=== PATIENT | female | born 1955 | race Caucasian/White ===

== ENCOUNTER 2018-02-25 13:56 | Observation (INO) | payer BC, OTHER ==
[2018-02-25 14:39] LABS: #Basophils 0.1 thou/uL (0.0-0.2); #Eosinphils 0.1 thou/uL (0.0-0.7); #Lymphocytes 1.8 thou/uL (1.20-3.40); #Monocytes 0.5 thou/uL (0.11-0.59); %Basophils 0.9 % (0.0-1.0); %Eosinophils 1.7 % (0.0-10.0); %Lymphocytes 27.1 % (21.0-51.0); %Neutrophils 62.2 % (42.0-75.0); Mean Corpuscular HGB CONC 32.3 g/dL (32.0-36.0); Mean Corpuscular Hemoglobin 26.8 pg (27.0-31.0); Mean Platelet Volume 7.3 fL (7.4-10.4); Platelet Count 351 thou/uL (130-400); RBC Distribution Width 14.5 % (11.5-14.5); White Blood Cell (WBC) Count 6.5 thou/uL (4.8-10.8)
[2018-02-25 15:02] LABS: Anion Gap 14 mmol/L (10-20); BUN (Urea Nitrogen) 16 mg/dL (9.8-20.1); Calc. Creatinine Clearance 0 mL/min (70-130); Carbon Dioxide 21 mmol/L (23-31); Chloride 110 mmol/L (98-107); Estimated GFR-MDRD 53; Potassium 3.5 mmol/L (3.5-5.1); Sodium 141 mmol/L (136-145)
[2018-02-25 15:03] LABS: ALT (SGPT) 9 U/L (8-55); AST (SGOT) 13 U/L (5-34); Albumin 3.8 g/dL (3.4-4.8); Alkaline Phosphatase 62 U/L (40-150); Bilirubin, Total 0.2 mg/dL (0.2-1.2); CK (CPK) 80 U/L (29-168); Calcium 8.7 mg/dL (7.8-10.44); Globulin 2.8 g/dL (2.4-3.5); Glucose 158 mg/dL (80-115); Protein, Total 6.6 g/dL (6.0-8.3)
[2018-02-25 15:07] LABS: CKMB 1.1 ng/mL (0-6.6); Troponin I Less than 0.010 ng/mL (< 0.028)
--- NOTE | 2018-02-25 15:19 | RAD ---
CHEST ONE VIEW: History: Chest pain, shortness of breath. Comparison: 2014 FINDINGS: There is calcified granuloma in the right mid lung. No focal airspace consolidation, pneumothorax, or effusion. There appears to be a sliding hiatal hernia. IMPRESSION: 1. Sliding hiatal hernia. 2. No acute intrathoracic abnormality. POS: [facility]
[2018-02-25 16:05] LABS: INR-International Normal Ratio 1.1; PTT 23.9 SEC (22.9-36.1); Prothrombin Time 14.4 SEC (12.0-14.7)
[2018-02-25 16:17] LABS: Iron 14 ug/dL (50-170); Iron Binding Capacity, Total 393 mcg/dL (265-497)
[2018-02-25 19:15] LABS: Troponin I Less than 0.010 ng/mL (< 0.028)
[2018-02-25] MEDS ORDERED: Ondansetron ODT 4 MG TAB SL PRN (20:48)
[2018-02-25] MEDS ORDERED: Sodium Chloride 0.9% 1,000 ML IV SCH (20:48)
[2018-02-25] MEDS ORDERED: Ondansetron HCl/PF 4 MG/2 ML Vial IVP PRN (20:48)
[2018-02-25] MEDS ORDERED: Acetaminophen 325 MG TAB PO PRN (20:48)
[2018-02-25] MEDS ORDERED: Sodium Ferric Gluconate 250 MG in Sodium Chloride 0.9% 100 ML IVPB SCH (21:00)
[2018-02-25 22:49] VITALS: BMI 25.8
[2018-02-26] MEDS ORDERED: Acetaminophen 325 MG TAB PO PRN (13:25)
[2018-02-27 07:56] VITALS: BP 118/68; TEMP 98.7
--- NOTE | 2018-02-27 08:16 | DIS ---
PRIMARY CARE PHYSICIAN: Kendy Ruiz NP DATE OF ADMISSION: 02/26/2018 DATE OF DISCHARGE: 02/27/2018 DISCHARGE DIAGNOSES: 1. Iron deficiency anemia. 2. Symptomatic anemia. 3. Human immunodeficiency virus positivity, uncontrolled. 4. Long-term antiretroviral therapy. 5. History of breast cancer. CONSULTATIONS: None. PROCEDURES: None. HISTORY AND PHYSICAL: Ms. Serina Dolan is a 62-year-old female who came to the emergency [facility] for increasing fatigue. She was found to have a hemoglobin of 8. We were called for admission. The patient was placed in observation. She had no episodes of GI bleeding. Her vital signs remained stable. She was iron deficient in the ER, was given IV iron and continued on p.o. iron. post-infus ion. She had no further episodes or problems and was sent home today in stable condition with outpat ient followup. DISCHARGE PHYSICAL EXAMINATION: The patient was seen and examined on the day of discharge. Discharg e plan and disposition was discussed with the patient face to face at the bedside. DISCHARGE MEDICATIONS: 1. Genvoya 1 tablet p.o. daily. 2. Tamoxifen 20 mg p.o. q.a.m. 3. Iron sulfate 325 mg p.o. b.i.d. Prescription sent. FOLLOWUP APPOINTMENTS: 1. Primary care physician within a week. 2. Dr. Hendrix as scheduled. DISCHARGE CONDITION: Stable. DISPOSITION: Discharged home via private vehicle. DISCHARGE ACTIVITY: As tolerated. DISCHARGE DIET: Unrestricted.
--- NOTE | 2018-02-27 08:25 | HP ---
DATE OF ADMISSION: 02/25/2018 PRIMARY CARE PHYSICIAN: Kendy Ruiz NP PRIMARY INFECTIOUS DISEASE DOCTOR: Dr. Lico Hendrix. CHIEF COMPLAINT: Weakness. HISTORY OF PRESENT ILLNESS: Ms. Dolan is a 62-year-old female with a history of HIV, well control led on highly active antiretroviral therapy monitored by Dr. Hendrix, and history of breast cancer on t amoxifen, who presents to the emergency department for 1 week history of severe weakness and dyspnea on exertion that she really relates been going on for probably 3-4 weeks total. She has gradually in creasing fatigue. Workup in the ER showed hemoglobin of 8.0 and we were subsequently consulted for admission. The patient denied any melena or hematochezia, no hematemesis. She denies any recent illnesses. PAST MEDICAL HISTORY: 1. HIV positive. 2. History of breast cancer. PAST SURGICAL HISTORY: Includes lumpectomy, bilateral tubal ligation. HOME MEDICATIONS: 1. Genvoya 1 tablet daily. 2. Tamoxifen 20 mg p.o. daily. ALLERGIES: SULFA causes a rash. FAMILY HISTORY: Negative for clotting or bleeding disorder. No immune dysfunction. SOCIAL HISTORY: Negative for habits x3. REVIEW OF SYSTEMS: All systems reviewed and negative except as stated as per HPI. PHYSICAL EXAMINATION: VITAL SIGNS: Temperature 97.5, pulse 80, blood pressure is 110/74, respiratory rate 14, satting 98% on room air. GENERAL: She is awake. She is alert. She is oriented x3, well-developed, well-nourished, white fem donn, who appears in no acute distress. Slightly pale. HEENT: Normocephalic, atraumatic. Pupils are equal, round, and reactive to light bilaterally. Muco us membranes are moist. She has no visible lesions, no thrush. She is anicteric. NECK: Supple. There is no lymphadenopathy, JVD, or thyromegaly. She had normal carotid upstroke wi thout bruits. LUNGS: Clear, no wheeze, no rales or rhonchi. CARDIOVASCULAR: Normal S1, S2. No S3 or S4. No audible murmur. ABDOMEN: Soft, nontender, nondistended. No masses or organomegaly. She has no rebound, rigidity or guarding. EXTREMITIES: Show no cyanosis, no clubbing, no edema. SKIN: Warm, moist and well perfused. No rashes or lesions. No jaundice. MUSCULOSKELETAL: Normal to inspection. Large joints appear normal with no evidence of inflammation or palpable effusions. NEUROLOGIC: Cranial nerves II through XII are grossly intact without any focal neurologic deficit. LABORATORY DATA: CBC showed a white count of 6.5, hemoglobin 8.0, hematocrit of 24.9, platelet count is 351,000. Last hemoglobin here was in 2013 and was 14.1. She does have a normal RDW, very minima lly decreased MCH and normal MCV. INR was normal at 1.1. D-dimer is undetectable. CMP was normal. Sodium 141, potassium 3.5, chloride 110, bicarbonate 21, BUN 14, creatinine is 1.05, glucose 158 and calcium 8.7. Liver function completely within normal limits. Cardiac biomarkers we re negative. Troponin was undetectable. Iron was 14 with a TIBC normal at 393 and a total ferritin low at 2.89. RADIOGRAPHIC STUDIES: None. ASSESSMENT AND PLAN: 1. Symptomatic anemia. 2. Iron deficiency anemia, likely chronic in nature. No GI bleed and fecal occult blood testing neg ative. She had IV iron in the ER. We will continue her iron b.i.d. Watch and if no evidence of GI bleeding, we will let her go home. 3. Human immunodeficiency virus, on Genvoya. 4. Long-term antiretroviral therapy. 5. History of breast cancer on tamoxifen. We will watch her overnight in observation.
--- NOTE | 2018-03-01 13:56 | EKG ---
Test Reason : SOB Blood Pressure : / mmHG Vent. Rate : 103 BPM Atrial Rate : 103 BPM P-R Int : 156 ms QRS Dur : 070 ms QT Int : 332 ms P-R-T Axes : 034 -12 047 degrees QTc Int : 434 ms Sinus tachycardia Otherwise normal ECG Confirmed by SUKHJINDER UMAÑA D.O. ([id number]), map editor LUIZ BREEN ([id number]) on 03/01/2018 1:56:36 PM Referred By: Confirmed By:SUKHJINDER UMAÑA D.O.
== END 2018-02-27 09:56 | disposition home or self-care (01) ==
LOC: ERS 13:56 → 2SE 18:06
PROVIDERS: ADMIT Internal Medicine; ATTEND Internal Medicine
DX: D50.9 Iron deficiency anemia, unspecified (principal); Z21 Asymptomatic human immunodeficiency virus [HIV] infection status; Z85.3 Personal history of malignant neoplasm of breast; Z79.810 Long term (current) use of selective estrogen receptor modulators (SERMs); Z79.899 Other long term (current) drug therapy; Z88.2 Allergy status to sulfonamides
CPT/HCPCS: 36415; 71045; 80053; 82274; 82550; 82553; 82728; 83540; 83550; 83880; 84484; 85025; 85379; 85610; 85730; 86850; 86900; 86901; 93005; 94760; 96360; 96361; G0378; J2916; J7050

== ENCOUNTER 2020-06-28 08:52 | Outpatient (CLI) | payer BC, MEDICARE ==
--- NOTE | 2020-06-28 10:38 | MMO ---
Bilateral MAMMO Bilat Screen [facility]. CLINICAL HISTORY: Patient is 65 years old and is seen for screening. The patient has the following family history of breast cancer: sister, at age 55, malignant (generic). The patient has a history of malignant (generic) in the left breast in June,. The patient has a history of left Lumpectomy in June, - malignant and left Stereotatic Biopsy in 2013 - malignant. VIEWS: The views performed were: bilateral craniocaudal with tomosynthesis and bilateral mediolateral oblique with tomosynthesis. FILMS COMPARED: The present examination has been compared to prior imaging studies performed at [facility] on 01/16/2016, at [facility] on 12/13/2014 and 06/10/2015, and at [facility] on 01/26/2019. This study has been interpreted with the assistance of computer-aided detection. MAMMOGRAM FINDINGS: The breasts are heterogeneously dense, which could obscure a lesion on mammography. Benign calcifications are noted bilaterally. There are stable left post-operative changes. There are no suspicious masses, suspicious calcifications, or new areas of architectural distortion. IMPRESSION: THERE IS NO MAMMOGRAPHIC EVIDENCE OF MALIGNANCY. A ROUTINE FOLLOW-UP MAMMOGRAM IN 1 YEAR IS RECOMMENDED. THE RESULTS OF THIS EXAM WERE SENT TO THE PATIENT. ACR BI-RADS Category 2 - Benign finding MAMMOGRAPHY NOTE: 1. A negative mammogram report should not delay a biopsy if a dominant of clinically suspicious mass is present. 2. Approximately 10% to 15% of breast cancers are not detected by mammography. 3. Adenosis and dense breasts may obscure an underlying neoplasm. Reported by: SHANTANU CAMP MD Electonically Signed: [id number]
== END 2020-06-28 08:53 | disposition home or self-care (01) ==
LOC: BICMAMMO 08:52
PROVIDERS: ATTEND Internal Medicine Medical Oncology
DX: Z12.31 Encounter for screening mammogram for malignant neoplasm of breast (principal); Z85.3 Personal history of malignant neoplasm of breast; Z80.3 Family history of malignant neoplasm of breast; Z98.890 Other specified postprocedural states
CPT/HCPCS: 77063; 77067

== ENCOUNTER 2021-07-03 10:44 | Outpatient (CLI) | payer MEDICARE | END 2021-07-03 10:45 | disposition home or self-care (01) | LOC: BICMAMMO 10:44 | PROVIDERS: ATTEND Internal Medicine Medical Oncology | DX: Z12.31 Encounter for screening mammogram for malignant neoplasm of breast (principal); Z80.3 Family history of malignant neoplasm of breast; Z85.3 Personal history of malignant neoplasm of breast; Z98.890 Other specified postprocedural states | CPT/HCPCS: 77063; 77067 ==

== ENCOUNTER 2022-07-20 11:03 | Outpatient (CLI) | payer MEDICARE, OTHER | END 2022-07-20 11:04 | disposition home or self-care (01) | LOC: BICMAMMO 11:03 | PROVIDERS: ATTEND Internal Medicine Medical Oncology | DX: Z12.31 Encounter for screening mammogram for malignant neoplasm of breast (principal); Z80.3 Family history of malignant neoplasm of breast; Z85.3 Personal history of malignant neoplasm of breast; Z98.890 Other specified postprocedural states | CPT/HCPCS: 77063; 77067 ==

== ENCOUNTER 2024-07-16 08:59 | Outpatient (CLI) | payer MEDICARE | END 2024-07-16 09:00 | disposition home or self-care (01) | LOC: BICMAMMO 08:59 | PROVIDERS: ATTEND Physician Assistant | DX: Z12.31 Encounter for screening mammogram for malignant neoplasm of breast (principal); Z13.820 Encounter for screening for osteoporosis; M81.0 Age-related osteoporosis without current pathological fracture; M85.852 Other specified disorders of bone density and structure, left thigh; Z80.3 Family history of malignant neoplasm of breast; Z85.3 Personal history of malignant neoplasm of breast; Z98.890 Other specified postprocedural states | CPT/HCPCS: 77063; 77067; 77080 ==

== ENCOUNTER 2025-07-20 09:47 | Outpatient (CLI) | payer MEDICARE | END 2025-07-20 09:48 | disposition home or self-care (01) | LOC: BICMAMMO 09:47 | PROVIDERS: ATTEND Physician Assistant | DX: Z12.31 Encounter for screening mammogram for malignant neoplasm of breast (principal); Z80.3 Family history of malignant neoplasm of breast; Z85.3 Personal history of malignant neoplasm of breast; Z98.890 Other specified postprocedural states; R92.333 Mammographic heterogeneous density, bilateral breasts | CPT/HCPCS: 77063; 77067 ==